=== PATIENT | female | born 1975 | race Caucasian/White ===

== ENCOUNTER 2016-08-23 21:30 | Emergency (ER) | payer OTHER ==
[2016-08-23 21:56] VITALS: TEMP 98.6; BMI 25.7
[2016-08-23] MEDS ORDERED: PROMETHAZINE 25 MG/ML VIAL IV ONE (22:03)
[2016-08-23] MEDS ORDERED: MORPHINE 4 MG/ML INJECTION IV ONE (22:03)
[2016-08-23] MEDS ORDERED: NS 1,000 ML IV ONE (22:03)
--- NOTE | 2016-08-23 22:11 | EDPRACDOC ---
- General Information Chief Complaint: Abdominal Pain Stated Complaint: LT FLANK PAIN Time Seen by Provider: 08/23/16 21:57 Information Source: Patient Mode Of Arrival: Car Home Medications: Home Medications Dicyclomine HCl [Bentyl] 20 mg PO Q8H PRN #20 tab 06/21/13 Estradiol [Estrace] 1.5 mg PO DAILY 06/21/13 Hydrocodone Bit/Acetaminophen [Lortab 5-500 Tablet] 1 tab PO Q4-6H PRN #15 tab 06/21/13 Hydroxychloroquine Sulfate [Plaquenil] 200 mg PO BID 06/21/13 Multivitamin [Multiple Vitamins] 1 each PO DAILY 06/21/13 Cholecalciferol [Vitamin D] 1,000 units PO DAILY 01/07/14 Cyanocobalamin (Vitamin B-12) [Vitamin B-12] 1,000 mcg PO DAILY 01/07/14 Meclizine HCl [Antivert] 25 mg PO TID PRN 01/07/14 Polyethylene Glycol 3350 [Miralax] 17 gm PO DAILY 01/07/14 Ketorolac Tromethamine 10 mg PO Q6H PRN #20 tab 08/23/16 Oxycodone Immediate Release [Oxycodone Immediate Release (OxyIR)] 5 mg PO Q6H PRN #20 tab 08/23/16 Promethazine [Phenergan] 25 mg PO Q6-8H PRN #20 tab 08/23/16 Tamsulosin HCl [Flomax] 0.4 mg PO DAILY #10 cap 08/23/16 Allergies/Adverse Reactions: Allergies Allergy/AdvReac Type Severity Reaction Status Date / Time ondansetron Allergy See Verified 08/23/16 21:56 [From Zofran (as Comments hydrochloride)] - History of Present Illness Onset: 1 HOUR HPI: PT PRESENTS WITH LEFT FLANK PAIN THAT SHE DESCRIBES SHARP, DULL. WITH URINARY FREQUENCY THAT BEGAN [employer]UFA[employer]ING [employer]. PT HAS A PMH OF KIDNEY STONES IN THE PAST BUT IT HAS BEEN YEARS SINCE SHE HAS HAD ONE. STATES SHE HAS NAUSEA WITHOUT VOMITING. : No Adult Abdominal History: Reports: Urolithiasis Female Abdominal History: Reports: Urolithiasis ED Past Medical History - Patient Medical History Surgical History: Reports: Cholecystectomy, Hysterectomy - Physical Exam Last recorded Vital Signs: Last Vital Signs Temp 98.6 F 08/23/16 21:51 Pulse 78 08/23/16 22:50 Resp 18 08/23/16 22:50 BP 112/78 08/23/16 22:50 Pulse Ox 97 08/23/16 22:50 Oxygen Pulse Oxygen Saturation 97 O2 Device Room Air Oxygen Flow Rate Fraction of Inspired Oxygen ( FIO2) - Results 08/23/16 22:35 08/23/16 22:35 WBC 7.6 xk/uL (3.8-10.8) 08/23/16 22:35 RBC 4.47 xM/uL (4.20-5.40) 08/23/16 22:35 Hgb 13.0 g/dL (12.0-16.0) 08/23/16 22:35 Hct 38.2 % (36-47) 08/23/16 22:35 MCV 86 fL (81-99) 08/23/16 22:35 MCH 29.1 pg (27-32) 08/23/16 22:35 MCHC 34.1 g/dl (33-36) 08/23/16 22:35 RDW 12.9 % (11.5-14.5) 08/23/16 22:35 Plt Count 257 xk/uL (130-400) 08/23/16 22:35 MPV 7.5 fL (7.4-10.4) 08/23/16 22:35 Neut % (Auto) 49.6 % (45-76) 08/23/16 22:35 Lymph % (Auto) 38.4 % (17-44) 08/23/16 22:35 [place] % (Auto) 7.9 % (3-10) 08/23/16 22:35 Eos % (Auto) 3.5 % (0-5) 08/23/16 22:35 Baso % (Auto) 0.6 % (0-2) 08/23/16 22:35 Absolute Neuts (auto) 3.72 xk/uL (1.7-8.2) 08/23/16 22:35 Absolute Lymphs (auto) 2.89 xk/uL (0.65-4.75) 08/23/16 22:35 Sodium 142 mEq/L (137-146) 08/23/16 22:35 Potassium 3.3 mEq/L (3.5-5.1) L 08/23/16 22:35 Chloride 102 mEq/L (98-107) 08/23/16 22:35 Carbon Dioxide 29 mMOL/L (22-33) 08/23/16 22:35 Anion Gap 14 mEq/L (8-16) 08/23/16 22:35 BUN 12 MG/DL (7-17) 08/23/16 22:35 Creatinine 0.70 MG/DL (0.52-1.04) 08/23/16 22:35 Estimated GFR (MDRD) > 60 mL/min (>=60) 08/23/16 22:35 Glucose 72 MG/DL (70-99) 08/23/16 22:35 Calculated Osmolality 272 MOs/Kg (270-290) 08/23/16 22:35 Calcium 9.6 MG/DL (8.4-10.2) 08/23/16 22:35 Total Bilirubin 0.4 MG/DL (0.2-1.3) 08/23/16 22:35 AST 57 IU/L (14-36) H 08/23/16 22:35 ALT 76 IU/L (9-52) H 08/23/16 22:35 Alkaline Phosphatase 134 IU/L (38-126) H 08/23/16 22:35 Total Protein 8.1 G/DL (6.3-8.2) 08/23/16 22:35 Albumin 4.5 G/DL (3.5-5.0) 08/23/16 22:35 Lipase 91 U/L (23-300) 08/23/16 22:35 Urine Color Yellow 08/23/16 22:35 Urine Clarity Clear 08/23/16 22:35 Urine pH 7.0 (5.0-8.0) 08/23/16 22:35 Ur Specific [place] 1.005 (1.003-1.035) 08/23/16 22:35 Urine Protein Neg (NEG/TRACE) 08/23/16 22:35 Urine Glucose (UA) Neg (NEGATIVE) 08/23/16 22:35 Urine Ketones Neg (NEGATIVE) 08/23/16 22:35 Urine Occult Blood Neg (NEG/TRACE) 08/23/16 22:35 Urine Nitrite Neg (NEGATIVE) 08/23/16 22:35 Urine Bilirubin Neg (NEGATIVE) 08/23/16 22:35 Urine Urobilinogen 0.2 MG/DL (0-1) 08/23/16 22:35 Ur Leukocyte Esterase Neg (NEGATIVE) 08/23/16 22:35 Urine RBC 0-2 (0-5) 08/23/16 22:35 Urine WBC 0-2 (0-5) 08/23/16 22:35 Urine Bacteria Few (NEG/FEW) 08/23/16 22:35 Lab Results 08/23/16 08/23/16 08/23/16 22:35 22:35 22:35 WBC 7.6 RBC 4.47 Hgb 13.0 Hct 38.2 MCV 86 MCH 29.1 MCHC 34.1 RDW 12.9 Plt Count 257 MPV 7.5 Neut % (Auto) 49.6 Lymph % (Auto) 38.4 [place] % (Auto) 7.9 Eos % (Auto) 3.5 Baso % (Auto) 0.6 Absolute Neuts (auto) 3.72 Absolute Lymphs (auto) 2.89 Sodium 142 Potassium 3.3 L Chloride 102 Carbon Dioxide 29 Anion Gap 14 BUN 12 Creatinine 0.70 Estimated GFR (MDRD) > 60 Glucose 72 Calculated Osmolality 272 Calcium 9.6 Total Bilirubin 0.4 AST 57 H ALT 76 H Alkaline Phosphatase 134 H Total Protein 8.1 Albumin 4.5 Lipase 91 Urine Color Yellow Urine Clarity Clear Urine pH 7.0 Ur Specific [place] 1.005 Urine Protein Neg Urine Glucose (UA) Neg Urine Ketones Neg Urine Occult Blood Neg Urine Nitrite Neg Urine Bilirubin Neg Urine Urobilinogen 0.2 Ur Leukocyte Esterase Neg Urine RBC 0-2 Urine WBC 0-2 Urine Bacteria Few Decision Time to Discharge: 23:26 - Departure Disposition: Home Condition: Stable Final Diagnosis: Calculus of left kidney Instructions: Kidney Stones (ED) Education/Counseling Given To: Patient Education/Counseling Given Regarding: Diagnosis, Treatment, Prognosis, Follow Up Referrals: Aaron Knight MD [Primary Care Provider] - One Week Jesus Wynne MD [Staff Physician] - One Week Prescriptions: Ketorolac Tromethamine 10 mg PO Q6H PRN #20 tab PRN Reason: Pain Oxycodone Immediate Release [Oxycodone Immediate Release (OxyIR)] 5 mg PO Q6H PRN #20 tab PRN Reason: Pain Promethazine [Phenergan] 25 mg PO Q6-8H PRN #20 tab PRN Reason: Nausea/Vomiting Tamsulosin HCl [Flomax] 0.4 mg PO DAILY #10 cap Additional Instructions: STRAIN ALL URINE. FOLLOW UP WITH PCP NEXT WEEK. IF PAIN CONTINUES MAKE A FOLLOW UP APPOINTMENT WITH UROLOGIST. RETURN TO THE ED FOR WORSENING SYMPTOMS OR CONCERNS
--- NOTE | 2016-08-23 22:33 | DIRPT ---
CLINICAL DATA: Acute onset of left flank pain. Initial encounter. EXAM: CT ABDOMEN AND PELVIS WITHOUT CONTRAST TECHNIQUE: Multidetector CT imaging of the abdomen and pelvis was performed following the standard protocol without IV contrast. COMPARISON: CT of the abdomen and pelvis performed 06/21/2013 FINDINGS: The visualized lung bases are clear. The liver and spleen are unremarkable in appearance. The patient is status post cholecystectomy, with clips noted at the gallbladder fossa. The pancreas and adrenal glands are unremarkable. There is mild left-sided hydronephrosis, with prominence of the left ureter along most of its course, to the level of an obstructing 5 x 4 mm stone at the distal left ureter, just above the left vesicoureteral junction. A nonobstructing 4 mm stone is noted at the lower pole of the left kidney. The right kidney is unremarkable in appearance. No perinephric stranding is seen. No free fluid is identified. The small bowel is unremarkable in appearance. The stomach is within normal limits. No acute vascular abnormalities are seen. The appendix is normal in caliber, without evidence for appendicitis. The colon is unremarkable in appearance. The bladder is mildly distended grossly remarkable. The patient is status post hysterectomy. No suspicious adnexal masses are seen. No inguinal lymphadenopathy is seen. No acute osseous abnormalities are identified. Vacuum phenomenon is noted at L5-S1, which can remain within normal limits. IMPRESSION: 1. Mild left-sided hydronephrosis, with an obstructing 5 x 4 mm stone noted distally in the left ureter, just above the left vesicoureteral junction. 2. Nonobstructing 4 mm stone at the lower pole of the left kidney. Electronically Signed By: Jesse Pulido M.D. On: 08/23/2016 22:30
[2016-08-23 23:03] LABS: AUTOMATED BASOPHIL 0.6 % (0-2); AUTOMATED EOSINOPHIL 3.5 % (0-5); AUTOMATED LYMPH 38.4 % (17-44); AUTOMATED MONOCYTE 7.9 % (3-10); AUTOMATED NEUTROPHIL 49.6 % (45-76); MPV 7.5 fL (7.4-10.4)
[2016-08-23 23:12] LABS: LEUKOCYTES/URINE NEG (NEGATIVE); NITRITE/URINE NEG (NEGATIVE); RBC/URINE 0-2 (0-5); URINE OCCULT BLOOD NEG (NEG/TRACE); WBC/URINE 0-2 (0-5)
[2016-08-23 23:14] LABS: BLOOD UREA NITROGEN 12 MG/DL (7-17); CALCIUM 9.6 MG/DL (8.4-10.2); CALCULATED OSMOLALITY 272 MOs/Kg (270-290); CHLORIDE 102 mEq/L (98-107); GLUCOSE 72 MG/DL (70-99); SODIUM LEVEL 142 mEq/L (137-146); TOTAL PROTEIN 8.1 G/DL (6.3-8.2)
[2016-08-23] MEDS ORDERED: OXYCODONE HCL 5 MG TABLET PO ONE (23:27)
[2016-08-23] MEDS ORDERED: KETOROLAC TROMETH 30 MG/ML VIAL IV ONE (23:27)
[2016-08-24 00:51] VITALS: BP 114/57; PULSE 68
== END 2016-08-24 00:45 | disposition home or self-care (01) ==
LOC: ED 21:30
DX: N20.0 Calculus of kidney (principal)
CPT/HCPCS: 36415; 74176; 80053; 81001; 83690; 85025; 96361; 96374; 96375; 99284; J1885; J2270; J2550; J3490